=== PATIENT | female | born 1950 ===

== ENCOUNTER 2016-12-29 09:24 | Emergency (ER) | payer MEDICARE, BC ==
[2016-12-29 09:59] VITALS: BP 103/61
--- NOTE | 2016-12-29 10:02 | UC ---
Skin Complaint HPI - HPI Summary HPI Summary: Patient presents to w/ tick bite under LEFT knee. States she removed tick this morning, unsure how long tick has been attached to body. States last year she had rash indicative of lyme dx, but unsure if she got testing- was put on 3 weeks of doxycycline then. Denies any fever, but c/o localized pain around tick bite. Patient brought in the tick which appears to be a deer tick. She denies EM rash. Localized pain, but denies joint pain, muscle aches, ZAMBRANO or other symptoms. She had no reaction last time to doxycycline. - History of Current Complaint Hx Obtained From: Patient ?: No Onset/Duration: Sudden Onset Skin Exposure Onset/Duration: Hours Ago Timing: Constant Onset Severity: Moderate Current Severity: Moderate Pain Intensity: 5 Pain Scale Used: 0-10 Numeric Location: Discrete - left leg Character: Redness, Raised, Painful Aggravating: Nothing, Touch Alleviating: Nothing Associated Signs & Symptoms: Positive: Negative Related History: Possible Reaction to: Insect <Victoria To - Last Filed: 12/29/16 10:35> <Elisa Dave - Last Filed: 12/29/16 10:53> - History of Current Complaint Chief Complaint: UCSkin Time Seen by Provider: 12/29/16 10:00 Stated Complaint: TICK - Allergy/Home Medications Allergies/Adverse Reactions: Allergies Allergy/AdvReac Type Severity Reaction Status Date / Time No Known Allergies Allergy Verified 12/29/16 09:50 Review of Systems Constitutional: Negative Skin: Other - small local red raised painful area surrounding previous tick. ENT: Negative Respiratory: Negative Cardiovascular: Negative Neurovascular: Negative Musculoskeletal: Negative Neurological: Negative All Other Systems Reviewed And Are Negative: Yes <Victroia To - Last Filed: 12/29/16 10:35> PMH/Surg Hx/FS Hx/Imm Hx Previously Healthy: Yes - Surgical History Surgical History: Yes Surgery Procedure, Year, and Place: TUBAL LIGATION - Family History Known Family History: Negative: Diabetes - Social History Occupation: Unemployed Lives: With Family Alcohol Use: Rare Substance Use Type: None Smoking Status (MU): Never Smoked Tobacco Have You Smoked in the Last Year: No - Immunization History Most Recent Influenza Vaccination: 2016 Most Recent Tetanus Shot: UTD Most Recent Pneumonia Vaccination: UTD <Victoria To - Last Filed: 12/29/16 10:35> Physical Exam Triage Information Reviewed: Yes Appearance: Well-Appearing, No Pain Distress, Well-Nourished Vital Signs: Initial Vital Signs Temp 98.2 F 12/29/16 09:51 Pulse 72 12/29/16 09:51 Resp 16 12/29/16 09:51 BP 103/61 12/29/16 09:51 Pulse Ox 100 12/29/16 09:51 Vital Signs Reviewed: Yes Eye Exam: Normal Eyes: Positive: Conjunctiva Clear Neck exam: Normal Neck: Positive: Supple, No Lymphadenopathy Respiratory: Positive: Chest non-tender, Lungs clear Cardiovascular Exam: Normal Cardiovascular: Positive: RRR Musculoskeletal Exam: Normal Musculoskeletal: Positive: Strength Intact Neurological Exam: Normal Psychological Exam: Normal Psychological: Positive: Normal Response To Family Skin Exam: Normal Skin: Positive: rashes, Other - small raised erythematous area surrounding tick bite - no EM rash <Victoria To - Last Filed: 12/29/16 10:35> Vital Signs: Initial Vital Signs Temp 98.2 F 12/29/16 09:51 Pulse 72 12/29/16 09:51 Resp 16 12/29/16 09:51 BP 103/61 12/29/16 09:51 Pulse Ox 100 12/29/16 09:51 <Elisa Dave - Last Filed: 12/29/16 10:53> Course/Dx - Course Course Of Treatment: Patient dislodged tick prior to arrival to . No EM rash noted. She denies ZAMBRANO, muscle aches, joint pains. She is otherwise healthy. She notes to an EM rash last year on her back and was given 3 weeks doxycycline. She tolerated well and continues to deny Lyme symptoms. She has never been tested for Lyme. D/t unknown duration of the tick, patient is encouraged to take the prophylactic dose of 200mg and given in . Tick is brought in and seems to be small and not engorged. - Differential Diagnoses - Skin Complaint Differential Diagnoses: Tick Born Illness, Tinea, Other - insect bite - Diagnoses Provider Diagnoses: tick bite <Victoria To - Last Filed: 12/29/16 10:35> Discharge <Victoria To - Last Filed: 12/29/16 10:35> <Elisa Dave - Last Filed: 12/29/16 10:53> - Discharge Plan Condition: Stable Disposition: HOME Patient Education Materials: Tick Bite (ED) Referrals: Destiny Mazariegos MD [Primary Care Provider] - Additional Instructions: Approach to prophylaxis : According to the Infectious Diseases Society of [place] (IDSA) guidelines that recommend antibiotic prophylaxis only in patients who meet all of the following criteria: 1. Attached tick identified as an adult or nymphal I. scapularis tick (deer tick). 2. Tick is estimated to have been attached for 72 hours (by degree of engorgement or time of exposure). 3. Prophylaxis is begun within 72 hours of tick removal. Local rate of infection of ticks with B. burgdorferi is 20 percent if attached for over 48 hours (these rates of infection have been shown to occur in parts of [place], parts of the [facility], and parts of [place] and [place]). If you experience a tick and time of attachment is believed to be less than 36 hours, you may remove the tick with head intact and no need for prophylaxis. If over 72 hours, please come into UC. Prophylactic doxycycline is not recommended for ticks attached less than 72 hours. Attestation Statement User Type: Provider - I was available for consult. This patient was seen by the [facility]. The patient was not presented to, seen by, or examined by me. -Martha <Elisa Dave - Last Filed: 12/29/16 10:53>
[2016-12-29] MEDS ORDERED: DOXYcycline CAP(*) 100 MG PO ONE (10:32)
== END 2016-12-29 10:41 | disposition home or self-care (01) ==
LOC: UCCORT 09:24
DX: S80.862A Insect bite (nonvenomous), left lower leg, initial encounter (principal); W57.XXXA Bitten or stung by nonvenomous insect and other nonvenomous arthropods, initial encounter; Y93.9 Activity, unspecified; Y92.9 Unspecified place or not applicable
CPT/HCPCS: 99212; A9270-GY; G0463

== ENCOUNTER 2017-02-16 08:39 | Emergency (ER) | payer MEDICARE, BC ==
[2017-02-16 08:49] VITALS: BP 109/51
--- NOTE | 2017-02-16 09:34 | UC ---
Skin Complaint HPI - HPI Summary HPI Summary: "Bullseye rash to left arm since last night. " She gets lyme disease every summer. She is out gardening daily. has [place] next to her yard. No fevers or chills or arthralgias. going to [place] for 2 wks [facility] and prefers to take an abx that does not cause sun sensitivity. - History of Current Complaint Chief Complaint: UCRash Time Seen by Provider: 02/16/17 08:58 Stated Complaint: BULLS EYE SKIN COMPLAINT - Allergy/Home Medications Allergies/Adverse Reactions: Allergies Allergy/AdvReac Type Severity Reaction Status Date / Time No Known Allergies Allergy Verified 02/16/17 08:43 Home Medications: Home Medications Calcium Carbonate-Vitamin D [Calcium + D3 600-200 mg-Unit] 1 tab PO DAILY [History Confirmed 02/16/17] Multivitamins/Minerals TAB* [Thera M Plus TAB*] 1 tab PO DAILY 02/16/17 [ History Confirmed 02/16/17] Review of Systems Constitutional: Negative, Fatigue - slight Skin: Rash Eyes: Negative ENT: Negative Respiratory: Negative Cardiovascular: Negative Gastrointestinal: Negative Genitourinary: Negative Motor: Negative Neurovascular: Negative Musculoskeletal: Negative Neurological: Negative Psychological: Negative All Other Systems Reviewed And Are Negative: Yes PMH/Surg Hx/FS Hx/Imm Hx Previously Healthy: Yes - Surgical History Surgical History: Yes Surgery Procedure, Year, and Place: TUBAL LIGATION - Family History Known Family History: Positive: Diabetes - sister diet controlled - Social History Alcohol Use: Rare Substance Use Type: None Smoking Status (MU): Never Smoked Tobacco Have You Smoked in the Last Year: No - Immunization History Most Recent Influenza Vaccination: 2016 Most Recent Tetanus Shot: UTD Most Recent Pneumonia Vaccination: UTD Physical Exam Triage Information Reviewed: Yes Appearance: Well-Appearing, No Pain Distress, Well-Nourished - very pleasant Vital Signs: Initial Vital Signs Temp 98.1 F 02/16/17 08:44 Pulse 75 02/16/17 08:44 Resp 16 02/16/17 08:44 BP 109/51 02/16/17 08:44 Pulse Ox 100 02/16/17 08:44 Vital Signs Reviewed: Yes Eye Exam: Normal ENT Exam: Normal Dental Exam: Normal Neck exam: Normal Neck: Positive: Supple, Nontender, No Lymphadenopathy Respiratory: Positive: Lungs clear, Normal breath sounds Cardiovascular Exam: Normal Cardiovascular: Positive: RRR, No Murmur, Pulses Normal, Brisk Capillary Refill Abdominal Exam: Normal Abdomen Description: Positive: Nontender, Soft Bowel Sounds: Positive: Present Musculoskeletal Exam: Normal Neurological Exam: Normal Psychological Exam: Normal Skin: Positive: rashes - left axilla, proximal flexor upper arm with bull's eye type rash with erythema and central area of bite, no tic present Course/Dx - Course Course Of Treatment: Lyme disease. treat with amox 500mgs tid x 21 days ( preferred over doxy d/t sun sensitivity). probiotic. - Differential Diagnoses - Skin Complaint Differential Diagnoses: Abscess, Cellulitis, Contact Dermatitis, Varicella Zoster, Other - lyme disease - Diagnoses Provider Diagnoses: lyme disease Discharge - Discharge Plan Condition: Stable Disposition: HOME Prescriptions: Amoxicillin CAP* [Amoxicillin 500 MG CAP*] 500 mg PO TID #63 cap Patient Education Materials: Lyme Disease (ED), Tick Bite (ED) Referrals: Destiny Mazariegos MD [Primary Care Provider] - Additional Instructions: Since you are going away, make sure to follow up with your primary care doctor when you return from your trip. Please go to an ER or uregnt care if you develop any lyme disease symptoms. -take a probiotic daily while on antibiotics. some good brands include colon health, florastor and align.
== END 2017-02-16 09:52 | disposition home or self-care (01) ==
LOC: UCCORT 08:39
DX: A69.20 Lyme disease, unspecified (principal)
CPT/HCPCS: 99212; G0463